=== PATIENT | female | born 1975 | race Caucasian/White ===

== ENCOUNTER 2023-11-20 16:48 | Emergency (ER) | payer MEDICAID ==
[~2023-11-20] VITALS: Ht 157.5 cm; Wt 95.3 kg
[2023-11-20 16:50] VITALS: BP_SYST 138; PULSE 127; RESP 17; TEMP 97; O2SAT 100
[2023-11-20 17:54] LABS: INFLUENZA TYPE A Negative (NEGATIVE); INFLUENZA TYPE B NEGATIVE (NEGATIVE)
[2023-11-20] MEDS ORDERED: ZIT250 PO (18:04)
[2023-11-20] MEDS ORDERED: IBUP-1969 PO (18:04)
[2023-11-20] MEDS ORDERED: PRED20TA PO (18:04)
[2023-11-20] MEDS ORDERED: D-ME120S20 PO (18:04)
== END 2023-11-20 18:18 | disposition home or self-care (01) ==
LOC: SED 16:48
DX: J20.9 Acute bronchitis, unspecified (principal); M79.10 Myalgia, unspecified site; R50.9 Fever, unspecified; J02.9 Acute pharyngitis, unspecified; Z79.899 Other long term (current) drug therapy; Z20.822 Contact with and (suspected) exposure to COVID-19
CPT/HCPCS: 36415; 71045; 99284

== ENCOUNTER 2023-12-02 17:26 | Emergency (ER) | payer MEDICAID ==
[~2023-12-02] VITALS: Ht 157.5 cm; Wt 95.3 kg
[~2023-12-02 17:26] MED LIST: D-ME120S20 PO; IBUP-1969 PO; PRED20TA PO; ZIT250 PO
[2023-12-02 17:39] VITALS: BP_SYST 150; PULSE 128; RESP 16; TEMP 98.8; O2SAT 96
== END 2023-12-02 19:15 | disposition left against medical advice (07) ==
LOC: SED 17:26
DX: J18.9 Pneumonia, unspecified organism (principal); R05.9 Cough, unspecified; R09.81 Nasal congestion; J02.9 Acute pharyngitis, unspecified; Z79.899 Other long term (current) drug therapy; Z20.822 Contact with and (suspected) exposure to COVID-19
CPT/HCPCS: 36415; 71045; 99284